=== PATIENT | male | born 1995 | race Hispanic/Latino ===

== ENCOUNTER 2019-10-06 04:16 | Inpatient (IN) | payer OTHER ==
[~2019-10-06] VITALS: Ht 175.3 cm; Wt 61.2 kg
[2019-10-06 03:32] VITALS: BP 124/74
[2019-10-06] MEDS ORDERED: SODIUM CHLORIDE 0.9% 1000ML 2,000 ML IV ONE (04:19)
[2019-10-06] MEDS ORDERED: LACTATED RINGERS 1000ML 2,000 ML IV ONE (04:34)
[2019-10-06] MEDS ORDERED: IOHEXOL 350 MG/ML 100ML INFUS..BTL IV ONE (04:35)
[2019-10-06 04:39] LABS: BASOPHILS % (AUTO) 0.6 % (0.0-5.0); EOSINOPHILS % (AUTO) 0.8 % (0.0-8.0); HEMATOCRIT 51.5 % (42-54); LYMPHOCYTES % (AUTO) 28.1 % (21.0-51.0); MEAN CORPUSCULAR HEMOGLOBIN 31.2 pg (27.0-33.0); MEAN CORPUSCULAR HGB CONC 35.1 g/dL (32.0-36.0); MEAN CORPUSCULAR VOLUME 88.8 fL (79-99); MONOCYTES % (AUTO) 5.5 % (3.0-13.0); NEUTROPHILS % (AUTO) 63.3 % (40.0-77.0); PLATELET COUNT (AUTO) 273 K/uL (130-400); RED CELL DISTRIBUTION WIDTH 12.5 % (11.0-15.5); WHITE BLOOD COUNT (AUTO) 10.4 K/uL (4.8-10.8)
[2019-10-06] MEDS ORDERED: TETANUS/DIPHTHERIA TOXOID [ADULT] 0.5 ML VIAL IM ONE (04:45)
[2019-10-06 04:55] LABS: INR 0.99 (0.85-1.15); PARTIAL THROMBOPLASTIN TIME 25.4 SEC (26.3-35.5); PROTHROMBIN TIME 10.4 SEC (9.6-11.6)
[2019-10-06 04:56] LABS: POTASSIUM 3.5 mmol/L (3.5-5.1)
[2019-10-06 05:00] LABS: ALBUMIN 4.4 g/dL (3.5-5.0); BILIRUBIN,TOTAL 1.3 mg/dL (0.2-1.0)
[2019-10-06] MEDS ORDERED: LIDOCAINE HCL 2% VISCOUS 15 ML UDCUP ONE ×2 (05:53→06:16)
[2019-10-06] MEDS ORDERED: LIDOCAINE HCL 1% 20 ML VIAL ONE (06:16)
[2019-10-06] MEDS ORDERED: CEFAZOLIN SODIUM 1 GM VIAL ONE (06:34)
[2019-10-06 07:05] LABS: APPEARANCE,URINE Clear (CLEAR); BILIRUBIN,URINE Negative (NEGATIVE); COLOR,URINE Orange (YELLOW); GLUCOSE, URINE (UA) Negative (NEGATIVE); KETONES,URINE Negative (NEGATIVE); LEUKOCYTE ESTERASE ,URINE Negative (NEGATIVE); NITRATE,URINE Negative (NEGATIVE); OCCULT BLOOD,URINE Large (NEGATIVE); PROTEIN,URINE POS 2+ mg/dL (NEGATIVE)
[2019-10-06 07:13] LABS: AMPHET/METH SCREEN,URINE NEGATIVE (NEGATIVE); BARBITURATE SCREEN, URINE NEGATIVE (NEGATIVE); BENZODIAZEPINES SCREEN,URINE NEGATIVE (NEGATIVE); CANNABINOID SCREEN,URINE NEGATIVE (NEGATIVE); COCAINE SCREEN,URINE POSITIVE (NEGATIVE); OPIATE SCREEN,URINE NEGATIVE (NEGATIVE); PHENCYCLIDINE SCREEN,URINE NEGATIVE (NEGATIVE)
[2019-10-06 07:15] LABS: BACTERIA,URINE None Seen /HPF (None Seen); RBC,URINE TNTC /HPF (0-1); SQUAMOUS EPITHELIAL CELL,UR 0-2 /HPF (0-2); WBC,URINE 0-1 /HPF (0-1)
[2019-10-06] MEDS ORDERED: ONDANSETRON HCL 4 MG/2 ML VIAL IVP PRN (07:15)
[2019-10-06] MEDS: SODIUM CHLORIDE 0.9% 1000ML 1,000 ML IV SCH ×3 (07:15→19:50)
[2019-10-06] MEDS ORDERED: KETOROLAC TROMETHAMINE 15MG/ML IV PRN (07:15)
[2019-10-06] MEDS ORDERED: SODIUM CHLORIDE 0.9% 1000ML 1,000 ML IV ONE (08:02)
[2019-10-06] MEDS ORDERED: KETOROLAC TROMETHAMINE 15MG/ML ONE (08:02)
[2019-10-06] MEDS ORDERED: IOHEXOL-350 75 ML VIAL IV ONE (08:34)
[2019-10-06 10:37] VITALS: BP 115/61
--- NOTE | 2019-10-06 10:56 | NUR ---
CHART REVIEWD [facility] GENERATED
[2019-10-06] MEDS: MORPHINE SULFATE 2 MG/ML 1ML SYG IM PRN ×3 (12:38→19:45)
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
[2019-10-06 16:00] VITALS: BP 131/66
--- NOTE | 2019-10-06 16:00 | NUR ---
CALLED DR FLYNN TO MAKE SURE THAT HE WAS AWARE OF THE CONSULT. HE WAS AWARE AND WANTS TO KNOW IF THE PATIENT HAVE TO USE THE C- COLLAR DURING SURGERY OR NOT. PAGED DR GONZALEZ, WAITING ON HIS RESPONSE TO INFORM DR. FLYNN.
[2019-10-06 19:30] VITALS: BP 126/69
--- NOTE | 2019-10-06 19:45 | NUR ---
PAIN SHIFT ASSESSMENT DONE, PLEASE REFER TO CHART. PT COMPLAINTS OF GENERALIZED PAINS. MEDICATED WITH MORPHINE. KEPT RESTED AND COMFORTABLE. CALL LIGHT WITHIN REACH. WILL RE-ASSESS PT. Addendum: 10/07/19 at 0455 by MOY VELASQUEZ RN RN Amended: Links added.
[2019-10-06] MEDS: KETOROLAC TROMETHAMINE 15MG/ML IV PRN (22:38)
--- NOTE | 2019-10-06 22:38 | NUR ---
PAIN PT CALLS FOR PAIN MEDICATION. MEDICATED WITH TORADOL IV. KEPT COMFORTABLE IN BED. WILL RE-ASSESS PT.
[2019-10-07] VITALS (23 sets, daily range): BP systolic 106–133; BP diastolic 49–88
--- NOTE | 2019-10-07 02:00 | NUR ---
ROUNDS PT SLEPT AT INTERVALS. RESTING WELL. NO DISTRESS NOTED. KEPT UNDISUTRBED AND COMFORTABLE. WILL MONITOR PT. CALL LIGHT WITHIN REACH. FAMILY AT BEDSIDE.
[2019-10-07] MEDS: SODIUM CHLORIDE 0.9% 1000ML 1,000 ML IV SCH ×2 (05:02→15:53)
[2019-10-07] MEDS: KETOROLAC TROMETHAMINE 15MG/ML IV PRN ×3 (05:02→22:23)
--- NOTE | 2019-10-07 05:02 | NUR ---
MEDS PT GIVEN TORADOL FOR PAIN. EXPLAINED THAT HE NEED TO BATHE BEFORE SX. PCP IS ABOUT TO HELP PT BUT PT REFUSES AT THIS TIME. PT'S MOTHER STATED SHE WILL HELP PT GET BATHED. FOR MORE CARE AND MANAGEMENT.
[2019-10-07 06:17] LABS: BASOPHILS % (AUTO) 0.4 % (0.0-5.0); EOSINOPHILS % (AUTO) 3.3 % (0.0-8.0); HEMATOCRIT 42.5 % (42-54); LYMPHOCYTES % (AUTO) 15.7 % (21.0-51.0); MEAN CORPUSCULAR HEMOGLOBIN 30.6 pg (27.0-33.0); MEAN CORPUSCULAR HGB CONC 33.9 g/dL (32.0-36.0); MEAN CORPUSCULAR VOLUME 90.2 fL (79-99); MONOCYTES % (AUTO) 10.3 % (3.0-13.0); NEUTROPHILS % (AUTO) 69.9 % (40.0-77.0); PLATELET COUNT (AUTO) 172 K/uL (130-400); RED BLOOD CELL COUNT(AUTO) 4.71 MIL/uL (4.50-6.20); RED CELL DISTRIBUTION WIDTH 12.6 % (11.0-15.5); WHITE BLOOD COUNT (AUTO) 7.4 K/uL (4.8-10.8)
[2019-10-07 06:30] LABS: CREATININE 0.7 mg/dL (0.5-1.5); POTASSIUM 3.8 mmol/L (3.5-5.1)
[2019-10-07] MEDS ORDERED: FENTANYL CITRATE PF 50 MCG/1 ML 2ML VIAL ONE (17:20)
[2019-10-07] MEDS ORDERED: PROPOFOL 10 MG/ML 20ML VIAL IV ONE ×2 (17:20→18:00)
[2019-10-07] MEDS ORDERED: LIDOCAINE PF 2% 5ML ABBOJECT ONE (17:20)
[2019-10-07] MEDS ORDERED: MIDAZOLAM HCL 1 MG/ML 2ML VIAL ONE ×2 (17:21→17:53)
[2019-10-07] MEDS ORDERED: CEFAZOLIN SODIUM 1 GM VIAL ONE ×2 (17:41→18:09)
[2019-10-08] VITALS: BP 121/68
[2019-10-08 04:00] VITALS: BP 127/65
[2019-10-08] MEDS: MORPHINE SULFATE 2 MG/ML 1ML SYG IM PRN (04:43)
[2019-10-08 07:30] VITALS: BP 119/59
[2019-10-08] MEDS: SODIUM CHLORIDE 0.9% 1000ML 1,000 ML IV SCH (07:59)
[2019-10-08 11:00] VITALS: BP 121/78
--- NOTE | 2019-10-08 11:59 | NUR ---
DR. FITZGERALD EVALUATED THE PATIENT AND VERBALIZED THAT BY HIS STAND POINT PT CAN BE D/C AND TO NOTIFY DR. FLYNN AND DR. GONZALEZ.
--- NOTE | 2019-10-08 14:24 | NUR ---
DISCHARGE INSTRUCTION PROVIDED TO PATIENT ALONG WITH FOLLOW UP APPT
== END 2019-10-08 15:00 | disposition home or self-care (01) | DRG 464 ==
LOC: EDH 04:16 → EDHIP 04:17 → 4DH 10:10
PROVIDERS: ADMIT Surgery; ATTEND Surgery
PROC: 3E0234Z Introduction of Serum, Toxoid and Vaccine into Muscle, Percutaneous Approach (ICD-10-PCS; 2019-10-07)
PROC: 0JB10ZZ Excision of Face Subcutaneous Tissue and Fascia, Open Approach (ICD-10-PCS; principal; 2019-10-07 18:04)
DX: S12.400A Unspecified displaced fracture of fifth cervical vertebra, initial encounter for closed fracture (principal); S06.0X9A Concussion with loss of consciousness of unspecified duration, initial encounter; S12.500A Unspecified displaced fracture of sixth cervical vertebra, initial encounter for closed fracture; S01.312A Laceration without foreign body of left ear, initial encounter; V89.2XXA Person injured in unspecified motor-vehicle accident, traffic, initial encounter; Y92.410 Unspecified street and highway as the place of occurrence of the external cause; Y93.89 Activity, other specified; Y99.8 Other external cause status; Z23 Encounter for immunization
CPT/HCPCS: 36415; 70450; 70486; 70496; 70498; 71260; 72125; 74177; 80048; 80053; 80305; 81001; 82550; 83690; 84484; 85025; 85610; 85730; 86850; 86900; 86901; 90714; 93005; G0378; G0480; J0690; J1885; J2001; J2250; J2405; J2704; J3010; J7030; J7120; Q9967